=== PATIENT | female | born 1990 | race Caucasian/White ===

== ENCOUNTER 2018-04-08 15:51 | Emergency (ER) | payer MEDICAID | END 2018-04-08 19:40 | disposition home or self-care (01) | LOC: FTE 19:40 | DX: R21 Rash and other nonspecific skin eruption (principal) | CPT/HCPCS: 99282; Z7502 ==

== ENCOUNTER 2018-06-20 12:32 | Emergency (ER) | payer MEDICAID ==
[2018-06-20] MEDS: ACETAMINOPHEN 500 MG TAB PO (15:06)
[2018-06-20] MEDS: SOD CHLORIDE 0.9% 1,000 ML IV (15:06)
[2018-06-20] MEDS: DIPHENHYDRAMINE 50 MG INJ IV (15:06)
[2018-06-20] MEDS: KETOROLAC 30 MG INJ IV (15:07)
[2018-06-20] MEDS: METOCLOPRAMIDE 10 MG INJ IV (15:08)
[2018-06-20] MEDS: DEXAMETHASONE 10 MG/ML 1 ML INJ IM (15:08)
== END 2018-06-20 17:50 | disposition home or self-care (01) ==
LOC: FTE 12:32
DX: J01.00 Acute maxillary sinusitis, unspecified (principal); G43.909 Migraine, unspecified, not intractable, without status migrainosus
CPT/HCPCS: 81025; 96361; 96372; 96374; 96375; 99284-25